=== PATIENT | male | born 1935 | race African-American/Black ===

== ENCOUNTER 2017-08-28 11:28 | Outpatient (CLI) | payer MEDICARE, MEDICAID ==
--- NOTE | 2017-08-28 14:52 | CT ---
CT OF ABDOMEN AND PELVIS: Date: 08-28-17 Comparison: None. History: Left lower quadrant pain for two weeks. Remote history of stomach cancer. Technique: Serial axial CT imaging is obtained at 5 mm intervals from the lung bases through the pubi c symphysis with IV contrast. Coronal reformatted imaging obtained. FINDINGS: The imaged lung bases appear unremarkable. No free intraperitoneal air or fluid is noted. The stomach appears grossly unremarkable but is suboptimally assessed on CT, especially secondary to decompression of the stomach on this exam. Linear calcified pleural plaque formation seen along the course of the right hemidiaphragm. Calcified densities are seen within the gallbladder suggesting stones. Recommend further assessment v ia follow up right upper quadrant ultrasound. No focal liver lesion seen. Spleen, pancreas, adrenal g lands, and kidneys demonstrate no acute findings. There is mild wall thickening of the urinary bladder. However, the urinary bladder is partially decom pressed and thus apparent urinary bladder wall thickening is of uncertain etiology/significance. There are a few scattered diverticula involving the descending colon and sigmoid colon with no eviden ce for diverticulitis. Scattered diverticula are also noted within the colon in the region of the cec um. The appendix is unremarkable. There is no evidence for bowel obstruction. There is extensive atherosclerotic calcification of the intrarenal abdominal aorta and the proximal a rterial structures of the pelvis. There is no abdominal or pelvic lymphadenopathy evident. Osseous structures demonstrated scattered degenerative changes of the imaged spine with no worrisome lytic or blastic bone lesions. IMPRESSION: There are numerous incidental findings as detailed above. There is no evidence for free intraperitone al air, diverticulitis, or small bowel obstruction. POS: JESUS
--- NOTE | 2017-08-28 15:21 | ULT ---
LEFT LOWER EXTREMITY VENOUS DUPLEX STUDY: Technique: Deep veins of the left lower extremity evaluated with color doppler and spectral analysis. Comparison: None. History: Left lower extremity pain and edema. FINDINGS: Deep veins of the left lower extremity show normal compression and blood flow. No evidence of DVT. IMPRESSION: No evidence of left lower extremity DVT. POS: PETER
== END 2017-08-28 11:29 | disposition home or self-care (01) ==
LOC: CT 11:28
PROVIDERS: ATTEND Family Medicine
DX: R60.0 Localized edema (principal); R10.32 Left lower quadrant pain
CPT/HCPCS: 74170; 74177

== ENCOUNTER 2020-07-07 13:34 | Outpatient (CLI) | payer MEDICARE, MEDICAID ==
--- NOTE | 2020-07-07 15:50 | MRI ---
MRI LEFT SHOULDER 07/07/20 PROVIDED CLINICAL HISTORY: Left shoulder pain. FINDINGS: Evaluation is limited by patient motion. There is full thickness, full width retracted tearing of the supraspinatus tendon with retraction about the level of the acromion. Extension to involve the anter ior fibers of the infraspinatus tendon and a full thickness partial width manner is suspected. The gregory bscapularis and teres minor tendons appear intact. The long head biceps tendon appears grossly intact and normally located. There is a physiologic amount of fluid within the glenohumeral joint. Signal alteration in the region of the superior labrum may reflect SLAP tear. No focal glenohumeral articular cartilage defect is ap parent. 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 There is mass effect upon the subjacent supraspinatus. Rotator cuff muscular volume appears preserved. No focal concerning regional marrow or muscular signa l abnormality is evident. IMPRESSION: 1. Full thickness, full width retracted tear of supraspinatus tendon, with probable involvement of the anterior infraspinatus fibers in a full thickness, partial width manner. 2. 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 3. Os acromiale. POS: AH
== END 2020-07-07 13:35 | disposition home or self-care (01) ==
LOC: BICMRI 13:34 → EDBD 15:00
PROVIDERS: ATTEND Orthopaedic Surgery
DX: M25.512 Pain in left shoulder (principal); M75.122 Complete rotator cuff tear or rupture of left shoulder, not specified as traumatic; M19.012 Primary osteoarthritis, left shoulder